=== PATIENT | male | born 1970 | race Caucasian/White ===

== ENCOUNTER 2018-12-01 10:37 | Emergency (ER) | payer BC ==
[2018-12-01] MEDS ORDERED: MORPHINE SULFATE 10 MG/ML INJ IV ONE ×2 (10:58→14:38)
[2018-12-01] MEDS ORDERED: KETOROLAC TROMETHAMINE INJ/PF 30 MG/1 ML SDV IV ONE (10:58)
[2018-12-01] MEDS ORDERED: ONDANSETRON HCL INJ/PF 4 MG/2 ML SDV IV ONE (10:58)
--- NOTE | 2018-12-01 11:02 | ER Document Report ---
ED Medical Screen (RME) - General Chief Complaint: Possible Kidney Stone Stated Complaint: FLANK PAIN Time Seen by Provider: 12/01/18 10:55 Mode of Arrival: Ambulatory Information source: Patient Notes: Patient presents complaining of left flank pain that radiates around to left groin and into the scrotum. Patient reports nausea vomiting. No fever. Patient is concerned about possible kidney stone although states this pain does feel different from stones he has had in the past. hx: Kidney stone, ACL repair, hernia repair I have greeted and performed a rapid initial assessment of this patient. A comprehensive ED assessment and evaluation of the patient, analysis of test results and completion of the medical decision making process will be conducted by additional ED providers. TRAVEL OUTSIDE OF THE [place] IN LAST 30 DAYS: No - Related Data Allergies/Adverse Reactions: No Known Allergies Allergy (Verified 12/01/18 10:38) Physical Exam - Vital signs Vitals: Temp Pulse Resp BP Pulse Ox 97.4 F 87 16 152/86 H 97 12/01/18 10:41 12/01/18 10:41 12/01/18 10:41 12/01/18 10:41 12/01/18 10:41 - Back Back: CVA tenderness - left Course - Vital Signs Vital signs: Temp Pulse Resp BP Pulse Ox 97.4 F 87 16 152/86 H 97 12/01/18 10:41 12/01/18 10:41 12/01/18 10:41 12/01/18 10:41 12/01/18 10:41
[2018-12-01 11:50] LABS: ABSOLUTE LYMPHOCYTES (AUTO) 0.8 10^3/uL (0.5-4.7); ABSOLUTE MONOCYTES (AUTO) 0.4 10^3/uL (0.1-1.4); ABSOLUTE NEUT (AUTO) 8.5 10^3/uL (1.7-8.2); BASOPHILS % (AUTO) 0.2 % (0-2); EOSINOPHILS % (AUTO) 0.1 % (0-6); HEMATOCRIT 42.6 % (37.9-51.0); HEMOGLOBIN 14.4 g/dL (13.5-17.0); LYMPHOCYTES % (AUTO) 8.3 % (13-45); MEAN CORPUSCULAR HEMOGLOBIN 29.9 pg (27.0-33.4); MEAN CORPUSCULAR HGB CONC 33.7 g/dL (32.0-36.0); MEAN CORPUSCULAR VOLUME 89 fl (80-97); MONOCYTES % (AUTO) 3.9 % (3-13); PLATELET COUNT 307 10^3/uL (150-450); RED CELL DISTRIBUTION WIDTH 13.9 % (11.5-14.0); SEGMENTED NEUTROPHILS % (AUTO) 87.5 % (42-78); TOTAL CELLS COUNTED % (AUTO) 100 %; WHITE BLOOD COUNT 9.7 10^3/uL (4.0-10.5)
[2018-12-01 12:09] LABS: ALANINE AMINOTRANSFERASE 36 U/L (21-72); ALBUMIN 4.6 g/dL (3.5-5.0); ALKALINE PHOSPHATASE 92 U/L (38-126); ANION GAP 12 (5-19); ASPARTATE AMINO TRANSFERASE 29 U/L (17-59); BILIRUBIN,DIRECT 0.4 mg/dL (0.0-0.4); BILIRUBIN,TOTAL 0.7 mg/dL (0.2-1.3); BLOOD UREA NITROGEN 17 mg/dL (7-20); CALCIUM 9.2 mg/dL (8.4-10.2); CARBON DIOXIDE 25 mmol/L (22-30); CHLORIDE 101 mmol/L (98-107); GLUCOSE 147 mg/dL (75-110); SODIUM 138.3 mmol/L (137-145); TOTAL PROTEIN 7.4 g/dL (6.3-8.2)
--- NOTE | 2018-12-01 12:11 | RADIOLOGY REPORT (SQ) ---
EXAM DESCRIPTION: CT ABD/PELVIS NO ORAL OR IV COMPLETED DATE/TIME: 12/01/2018 11:46 am REASON FOR STUDY: L flank, L lower pelvic pain COMPARISON: None. TECHNIQUE: CT scan of the abdomen and pelvis performed without intravenous or oral contrast. Images reviewed with lung, soft tissue, and bone windows. Reconstructed coronal and sagittal MPR images revi ewed. All images stored on PACS. All CT scanners at this facility use dose modulation, iterative reconstruction, and/or weight based d osing when appropriate to reduce radiation dose to as low as reasonably achievable (ALARA). [facility]: Dose Right [facility]: CareDose [facility]: Dose Right [facility]: Teradose 4D [facility]: Smart Jeeves RADIATION DOSE: CT Rad equipment meets quality standard of care and radiation dose reduction techniq ues were employed. CTDIvol: 19.0 mGy. DLP: 1078 mGy-cm.mGy. LIMITATIONS: None. FINDINGS: LOWER CHEST: No significant findings. No nodules or infiltrates. NON-CONTRASTED LIVER, SPLEEN, ADRENALS: Evaluation limited by lack of IV contrast. No identified sign ificant masses. PANCREAS: No masses. No peripancreatic inflammatory changes. GALLBLADDER: Surgically absent. RIGHT KIDNEY AND URETER: No suspicious masses. Assessment limited by lack of IV contrast. No signif icant calcifications. No hydronephrosis or hydroureter. LEFT KIDNEY AND URETER: Mild hydronephrosis. Perinephric stranding. There is a 3 mm calculus at the left UVJ. AORTA AND RETROPERITONEUM: No aneurysm. No retroperitoneal masses or adenopathy. BOWEL AND PERITONEAL CAVITY: Sigmoid diverticulosis. No inflammation. No obvious bowel mass. APPENDIX: Not identified. PELVIS, BLADDER, AND ABDOMINAL WALL:No abnormal masses. No free fluid. Bladder normal. BONES: No significant findings. OTHER: No other significant finding. IMPRESSION: Mild left hydronephrosis secondary to a 3 mm calculus at the left UVJ. Diverticulosis c [place]. COMMENT: Quality ID # [id number]: Final reports with documentation of one or more dose reduction techniques (e.g., Automated exposure control, adjustment of the mA and/or kV according to patient size, use of iterative reconstruction technique) TECHNICAL DOCUMENTATION: JOB ID: [id number] [employer]- All Rights Reserved Reading location - IP/workstation name: [email or web address]
[2018-12-01 14:11] LABS: APPEARANCE,URINE CLEAR; BILIRUBIN,URINE NEGATIVE (NEGATIVE); COLOR,URINE YELLOW; GLUCOSE, URINE NEGATIVE (NEGATIVE); KETONES,URINE 20 mg/dL (NEGATIVE); LEUKOCYTE ESTERASE,URINE NEGATIVE (NEGATIVE); NITRITE,URINE NEGATIVE (NEGATIVE); PROTEIN,URINE NEGATIVE (NEGATIVE); URINE SPECIFIC GRAVITY 1.029; UROBILINOGEN,URINE NEGATIVE mg/dL (<2.0)
[2018-12-01] MEDS ORDERED: METOCLOPRAMIDE HCL INJ/PF 10 MG/2 ML SDV IV ONE (14:18)
--- NOTE | 2018-12-01 14:23 | ER Document Report ---
ED General - General Chief Complaint: Possible Kidney Stone Stated Complaint: FLANK PAIN Time Seen by Provider: 12/01/18 10:55 Mode of Arrival: Ambulatory TRAVEL OUTSIDE OF THE [place] IN LAST 30 DAYS: No - HPI Notes: Patient is a 48-year-old male with no significant past medical history aside from previous kidney stones who presents complaining of left flank pain that does not radiate that began yesterday. Patient states he does have associated nausea and vomiting. The pain has been waxing and waning. He is otherwise urinating normally and having normal bowel movements. Denies drug allergies. No surgical history to his abdomen. Denies any headache, fever, URI, sore th roat, chest pain, palpitations, syncope, cough, shortness of breath, wheeze, dyspnea, diarrhea, urinary retention, dysuria, hematuria, loss of control of bowel or bladder, numbness/tingling, saddle anesthesia, muscle paralysis/weakness, or rash. - Related Data Allergies/Adverse Reactions: No Known Allergies Allergy (Verified 12/01/18 10:38) Past Medical History - General Information source: Patient - Social History Smoking Status: Never Smoker Frequency of alcohol use: None Drug Abuse: None Family History: Reviewed & Not Pertinent Patient has suicidal ideation: No Patient has homicidal ideation: No Renal/ Medical History: Reports: Hx Kidney Stones. Denies: Hx Peritoneal Dialysis Past Surgical History: Reports: Hx Abdominal Surgery - umbilical hernia, Hx Cholecystectomy, Hx Orthopedic Surgery - R ACL repair Review of Systems - Review of Systems -: Yes All other systems reviewed and negative Physical Exam - Vital signs Vitals: Temp Pulse Resp BP Pulse Ox 97.4 F 87 16 152/86 H 97 12/01/18 10:41 12/01/18 10:41 12/01/18 10:41 12/01/18 10:41 12/01/18 10:41 - Notes Notes: PHYSICAL EXAMINATION: GENERAL: Well-appearing, well-nourished and in no acute distress. LUNGS: Breath sounds clear to auscultation bilaterally and equal. No wheezes rales or rhonchi. HEART: Regular rate and rhythm without murmurs, rubs, gallops. ABDOMEN: Soft, nontender, nondistended abdomen. No guarding, no rebound. Normal bowel sounds present. No CVA tenderness bilaterally. Musculoskeletal: FROM to passive/active. Strength 5+/5. Extremities: No cyanosis, clubbing, or edema b/l. Peripheral pulses 2+. Capillary refill less than 3 seconds. NEUROLOGICAL: Normal speech, normal gait. PSYCH: Normal mood, normal affect. SKIN: Warm, Dry, normal turgor, no rashes or lesions noted. Course - Re-evaluation Re-evalutation: 12/01/18 14:20 Patient is an afebrile, well-hydrated, 48-year-old male who presents with a 3 mm left ureteral stone without evidence of superimposed infection. Vitals are acceptable without significant tachycardia, tachypnea, or hypoxia. PE is otherwise unremarkable. His abdomen is soft and nontender. Patient is nontoxic-appearing and is able to tolerate p.o. without difficulty. Labs unremarkable. See CT scan report. Low suspicion/risk for acute appendicitis, bowel obstruction, acute cholecystitis, perforated diverticulitis, incarcerated hernia, pancreatitis, perforated ulcer, peritonitis, sepsis, testicular torsion, or other systemic emergent condition at this time. Patient is aware that his condition can change from initial presentation and he needs to monitor symptoms closely and seek medical attention if any acute changes. Conservative measures otherwise for symptoms. Recheck with PCM in 2-3 days. Consider consult with a neurologist. Return to the ED with any worsening/concerning symptoms otherwise as reviewed in discharge. Patient is in agreement. - Vital Signs Vital signs: Temp Pulse Resp BP Pulse Ox 97.4 F 87 16 152/86 H 97 12/01/18 10:41 12/01/18 10:41 12/01/18 10:41 12/01/18 10:41 12/01/18 10:41 - Laboratory Result Diagrams: 12/01/18 11:26 12/01/18 11:26 Laboratory results interpreted by me: 12/01/18 12/01/18 12/01/18 11:26 11:26 13:45 Seg Neutrophils % 87.5 H Lymphocytes % 8.3 L Absolute Neutrophils 8.5 H Creatinine 1.29 H Est GFR (Non-Af Amer) 59 L Glucose 147 H Urine Ketones 20 H Urine Ascorbic Acid 40 H Discharge - Discharge Clinical Impression: Left ureteral stone Condition: Stable Disposition: HOME, SELF-CARE Additional Instructions: Push fluids (i.e. water, cranberry juice) Proper hygenic technique Keep the skin clean Tylenol/ibuprofen as needed Take medications as directed F/u with your PCM in 3-5 days for a recheck Consider consult with a Urologist for ongoing/worsening symptoms. Return to the ED with any worsening symptoms and/or development of fever, headache, chest pain, palpitations, syncope, shortness of breath, trouble breathing, abdominal pain, n/v/d, blood in stool/urine, loss of control of bowel/bladder, urinary retention, or other worsening symptoms that are conc erning to you. Prescriptions: Morphine Sulfate [Morphine Ir 15 Mg Tablet] 15 mg PO TID #12 tablet Ondansetron [Zofran Odt 4 mg Tablet] 1 - 2 tab PO Q4H PRN #15 tab.rapdis PRN Reason: For Nausea/Vomiting Tamsulosin HCl [Flomax] 0.4 mg PO DAILY #10 cap.er.24h Forms: Elevated Blood Pressure, Return to Work Referrals: [facility] [Provider Group] - Follow up as needed
[2018-12-01 14:37] VITALS: BP 144/84
== END 2018-12-01 14:56 | disposition home or self-care (01) ==
LOC: ER 10:37
DX: N20.1 Calculus of ureter (principal); R11.2 Nausea with vomiting, unspecified; R10.9 Unspecified abdominal pain; Z87.442 Personal history of urinary calculi; Z90.49 Acquired absence of other specified parts of digestive tract
CPT/HCPCS: 96376; 99284; 96374; 96375; 36415; 85025; 80053; 81001; 74176; J1885; J2765; J2270; J2405